=== PATIENT | female | born 1955 ===

== ENCOUNTER 2017-04-11 13:16 | Outpatient (CLI) | payer BC ==
--- NOTE | 2017-04-11 13:55 | XRay Report ---
Bilateral knee: History: Knee pain. Findings: Marked narrowing of lateral compartment and patellofemoral compartment of right knee joint with severe degenerative changes. Mild degenerative changes of the medial compartment. Moderate narrowing of the lateral compartment left knee joint with minimal narrowing of the medial compartment. Narrowing of the patellofemoral compartment. No fracture dislocation or soft tissue calcification bilaterally. Impression: Degenerative changes bilaterally as detailed above.
== END 2017-04-11 13:17 | disposition home or self-care (01) ==
LOC: SPVIMAG 13:16
PROVIDERS: ATTEND Orthopaedic Surgery Sports Medicine
DX: M17.0 Bilateral primary osteoarthritis of knee (principal)